=== PATIENT | male | born 1985 | race Two or more races ===

== ENCOUNTER 2020-02-03 16:42 | Emergency (ER) | payer SELFPAY ==
[~2020-02-03] VITALS: Ht 177.8 cm; Wt 94.0 kg
--- NOTE | 2020-02-03 17:15 | NUR ---
PT WALKED WITH RICA SCHNEIDER TO ROOM WITH A STEADY GAIT.
--- NOTE | 2020-02-03 17:21 | NUR ---
OKAY BY PATIENT FOR FRIEND SUSY TO TRANSLATE. PER PT TRANSLATED BY FRIEND PT HAVING BRIGHT RIGHT BLOOD FROM RECTUM YESTERDAY. PT ALSO HAS COMPLAINTS OF RIGHT SIDED ABD PAIN. PT ALSO HAS COMPLAINTS OF CONSTIPATION. DENIES FEVER/CHILLS.
[2020-02-03 17:59] LABS: ALBUMIN 4.1 g/dL (3.4-5.0); ANION GAP 5 mmol/L (5-15); CALCIUM 9.1 mg/dL (8.5-10.1); CHLORIDE 106 mmol/L (98-107); CREATININE 0.62 mg/dL (0.7-1.3)
--- NOTE | 2020-02-03 18:06 | NUR ---
PT RETURNED FROM XR.
[2020-02-03 18:30] LABS: BASOPHILS # (AUTO) 0.01 x10^3/uL (0-0.1); BASOPHILS % (AUTO) 0 % (0-1); EOSINOPHILS % (AUTO) 2 % (1-7); LYMPHOCYTES # (AUTO) 2.62 x10^3/uL (1-3.4); LYMPHOCYTES % (AUTO) 39 % (22-44); MD NO; MEAN CORPUSCULAR HEMOGLOBIN 30.8 pg (27.5-34.5); MEAN CORPUSCULAR VOLUME 90.6 fL (81-97); MEAN PLATELET VOLUME 8.4 fL (7.4-10.4); MONOCYTES # (AUTO) 0.51 x10^3/uL (0.2-0.8); MONOCYTES % (AUTO) 8 % (2-9); NEUTROPHILS # (AUTO) 3.46 x10^3/uL (1.8-6.8); NEUTROPHILS % (AUTO) 52 % (42-75); PLATELET COUNT 253 x10^3/uL (130-400); RED CELL DISTRIBUTION WIDTH 13.4 % (9.4-14.8)
--- NOTE | 2020-02-03 18:41 | NUR ---
PT LYING ON GURNEY WATCHING TV. AWAITING RECHECK BY [facility]. NO NEEDS. VSS. RN TO CONTINUE TO MONITOR.
--- NOTE | 2020-02-03 18:55 | NUR ---
REPORT TO RICA CAZARES.
--- NOTE | 2020-02-03 19:07 | NUR ---
ERP AT PT'S BEDSDIE FOR RECHECK
[2020-02-03 19:50] VITALS: BP 110/91
== END 2020-02-03 19:53 | disposition home or self-care (01) ==
LOC: ED 17:53
DX: K64.8 Other hemorrhoids (principal); K59.00 Constipation, unspecified; R10.31 Right lower quadrant pain
CPT/HCPCS: 36415; 74021; 80048; 82040; 85025; 99284